=== PATIENT | female | born 1970 | race Caucasian/White ===

== ENCOUNTER 2024-08-27 09:43 | Day surgery (SDC) | payer OTHER ==
[2024-08-27] MEDS: Lactated Ringers 1,000 ML IV SCH (10:02)
[2024-08-27] MEDS ORDERED: Midazolam 1 MG/ML 2 ML SDV ONE (10:30)
[2024-08-27] MEDS ORDERED: Propofol 200 MG/20 ML SDV ONE ×2 (10:30)
[2024-08-27] MEDS ORDERED: fentaNYL 50 MCG/ML SDV ONE ×2 (10:30)
[2024-08-27] MEDS ORDERED: Flumazenil 0.1 MG/ML 5 ML MDV ONE (10:30)
[2024-08-27] MEDS ORDERED: Ketamine 200 MG/20 ML MDV ONE (10:30)
== END 2024-08-27 11:55 | disposition home or self-care (01) ==
LOC: CC.SDS 09:43
PROVIDERS: ATTEND Family Medicine
DX: Z12.11 Encounter for screening for malignant neoplasm of colon (principal); K57.30 Diverticulosis of large intestine without perforation or abscess without bleeding; F17.210 Nicotine dependence, cigarettes, uncomplicated; Z88.8 Allergy status to other drugs, medicaments and biological substances; Z91.040 Latex allergy status; Z79.899 Other long term (current) drug therapy
CPT/HCPCS: J2250; J2704; J3010; J3490; J7120